=== PATIENT | female | born 1990 | race Hispanic/Latino ===

== ENCOUNTER → 2022-04-10 | Outpatient (CLI) | payer MEDICAID | END | disposition home or self-care (01) | LOC: DAH 10:00 → EDSTATUS 04-17 07:35 | PROVIDERS: ATTEND Surgery | DX: Z01.812 Encounter for preprocedural laboratory examination (principal); R12 Heartburn; Z20.822 Contact with and (suspected) exposure to COVID-19 | CPT/HCPCS: 36415; 84703; 87426 ==